=== PATIENT | male | born 1970 | race Two or more races ===

== ENCOUNTER 2023-07-02 18:48 | Emergency (ER) | payer OTHER ==
[~2023-07-02] VITALS: Ht 190.5 cm; Wt 84.4 kg
[2023-07-02] MEDS ORDERED: CARDURA1 MG (18:55)
[2023-07-02] MEDS ORDERED: ATACAND32 MG (18:55)
[2023-07-02] MEDS ORDERED: DILTIAZEM 24HR240 MG (18:55)
[2023-07-02 21:22] LABS: HEMATOCRIT 40.8 % (39.0-48.0); HEMOGLOBIN 14.1 g/dL (13-16.00); MEAN CELL VOLUME 84.7 fL (80.0-100.00); MEAN CORPUSCULAR HEMOGLOBIN 29.3 pg (27.00-32.0); MEAN CORPUSCULAR HGB CONC 34.6 g/dl (32.0-36.0); PLATELET COUNT 250 K/uL (150-450); RED BLOOD COUNT 4.81 M/uL (4.00-6.00); RED CELL DISTRIBUTION WIDTH 13.5 % (11.5-14.5)
[2023-07-02 21:25] LABS: URINE APPEARANCE Clear; URINE BILIRRUBIN Negative (NEGATIVE); URINE BLOOD Large; URINE COLOR Yellow; URINE GLUCOSE Negative (NEGATIVE); URINE LEUKOCYTE Negative; URINE NITRATE Negative; URINE PROTEIN Negative (NEGATIVE); URINE UROBILINOGEN 0.2 E.U./dl
[2023-07-02 21:27] LABS: URINE BACTERIA 15.1 uL (0.0-1933); URINE EPITHELIAL CELLS 2.3 uL (0.0-38.8)
[2023-07-02 21:40] LABS: CALCIUM 9.4 mg/dL (8.5-10.1); CREATININE SERUM 1.19 mg/dL (0.70-1.30); GFR 64.2; POTASSIUM 4.1 mEq/L (3.5-5.1)
[2023-07-03] MEDS ORDERED: KETO10TA2 PO ×2 (02:14→02:16)
[2023-07-03] MEDS ORDERED: TAMS0.4C PO ×2 (02:14→02:16)
== END 2023-07-03 02:23 ==
LOC: ER 18:48
DX: N20.1 Calculus of ureter (principal)